=== PATIENT | male | born 2000 | race Caucasian/White ===

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

== ENCOUNTER 2019-04-19 23:00 | Inpatient (IN) | payer OTHER ==
[~2019-04-19] VITALS: Ht 177.8 cm; Wt 99.0 kg
[~2019-04-19 23:00] MED LIST: ALBU8.5H8 INH; AZIT500T5 PO; HC30CR25 TOP; LORA10CA PO; PRED20TA PO
[2019-04-19] MEDS ORDERED: ACETAMINOPHEN 500 MG TAB PO STA (23:16)
[2019-04-19] MEDS ORDERED: METHYLPREDNISOLONE 125 MG INJ IV ONE (23:30)
[2019-04-19] MEDS ORDERED: LEVALBUTEROL (NEB) 1.25 MG/0.5 ML AMP HHN ONE (23:30)
[2019-04-19] MEDS ORDERED: KETOROLAC 30 MG INJ IM STA (23:49)
[2019-04-19] MEDS ORDERED: KETOROLAC 30 MG INJ IV ONE (23:57)
[2019-04-20] MEDS ORDERED: CEFTRIAXONE 1 GM INJ IM ONE (01:30)
[2019-04-20] MEDS ORDERED: SOD CHLORIDE 0.9% 1,000 ML IV ONE (01:30)
[2019-04-20] MEDS ORDERED: LEVALBUTEROL (NEB) 1.25 MG/0.5 ML AMP HHN ONE (01:30)
[2019-04-20] MEDS ORDERED: CEFTRIAXONE 1 GM/50 ML (PMX) 50 ML IVPB ONE (01:30)
[2019-04-20] MEDS ORDERED: MAGNESIUM SULFATE 1 GM/D5W 100 ML IVPB ONE (01:30)
[2019-04-20] MEDS ORDERED: SODIUM CHLORIDE 0.9% 1L BAG IV* STA (03:30)
[2019-04-20] MEDS ORDERED: AZITHROMYCIN 500MG/NS (PMX) 250 ML IVPB ONE (04:00)
[2019-04-20] MEDS ORDERED: SOD CHLORIDE 0.9% 100 ML ONE (04:32)
[2019-04-20] MEDS ORDERED: IOHEXOL 100 ML ONE (04:32)
[2019-04-20] MEDS ORDERED: SOD CHLORIDE 0.9% 1,000 ML IV SCH (04:45)
[2019-04-20] MEDS ORDERED: BISACODYL (EC) 5 MG TAB PO PRN (05:00)
[2019-04-20] MEDS ORDERED: DOCUSATE SODIUM 100 MG CAP PO PRN (05:00)
[2019-04-20] MEDS ORDERED: HYDROCODONE/APAP (5/325) TAB PO PRN (05:00)
[2019-04-20] MEDS ORDERED: ONDANSETRON 4 MG INJ IV PRN (05:00)
[2019-04-20] MEDS ORDERED: NACL 0.9% 3 ML SYG IV SCH (05:00)
[2019-04-20] MEDS ORDERED: ACETAMINOPHEN 325 MG TAB PO PRN (05:00)
[2019-04-20] MEDS ORDERED: IBUPROFEN 600 MG TAB PO PRN (05:00)
[2019-04-20 08:00] VITALS: BP 127/71; PULSE 102; RESP 16
[2019-04-20] MEDS ORDERED: SOD CHLORIDE 0.9% 500 ML IV ONE (08:00)
[2019-04-20 09:00] VITALS: BP 127/71; PULSE 102; RESP 20
[2019-04-20 09:59] VITALS: Ht 177.8 cm; Wt 99.0 kg
[2019-04-20] MEDS: LORATADINE 10 MG TAB PO SCH (10:21)
[2019-04-20] MEDS: ENOXAPARIN 40 MG/0.4 ML SYG SC SCH (10:23)
[2019-04-20] MEDS ORDERED: ALBUTEROL/IPRATROPIUM (NEB) 3 ML AMP HHN PRN (13:30)
[2019-04-20] MEDS ORDERED: CEPASTAT LOZENGE MT PRN (13:30)
[2019-04-20 14:03] VITALS: BP 144/75; PULSE 131; RESP 20
[2019-04-20 15:47] VITALS: PULSE 100
[2019-04-20 21:29] VITALS: BP 128/66; PULSE 103; RESP 18
[2019-04-21] MEDS: CEFTRIAXONE 1 GM/50 ML (PMX) 50 ML IVPB SCH (00:42)
[2019-04-21] MEDS: AZITHROMYCIN 250 MG in SOD CHLORIDE 0.9% 250 ML IVPB SCH (01:56)
[2019-04-21 03:42] VITALS: BP 112/80; PULSE 90; RESP 18
[2019-04-21 07:41] VITALS: BP 120/77; PULSE 85; RESP 19
[2019-04-21] MEDS: LORATADINE 10 MG TAB PO SCH (09:20)
[2019-04-21] MEDS: ENOXAPARIN 40 MG/0.4 ML SYG SC SCH (09:21)
[2019-04-21 15:30] VITALS: BP 122/77; PULSE 87; RESP 18
[2019-04-21 19:37] VITALS: BP 126/75; PULSE 80; RESP 20
[2019-04-22] MEDS: CEFTRIAXONE 1 GM/50 ML (PMX) 50 ML IVPB SCH (00:27)
[2019-04-22 01:12] VITALS: BP 135/67; PULSE 68; RESP 20
[2019-04-22] MEDS: AZITHROMYCIN 250 MG in SOD CHLORIDE 0.9% 250 ML IVPB SCH (01:21)
[2019-04-22 07:49] VITALS: BP 110/59; PULSE 61; RESP 16
[2019-04-22] MEDS: LORATADINE 10 MG TAB PO SCH (08:44)
[2019-04-22] MEDS: ENOXAPARIN 40 MG/0.4 ML SYG SC SCH (08:48)
[2019-04-22 15:13] VITALS: BP 120/59; PULSE 75; RESP 16
== END 2019-04-22 15:59 | disposition home or self-care (01) | DRG 871 ==
LOC: FTE 23:00 → 2NE 04-20 04:42 → EDBEDREQSVC 04-20 07:50
PROVIDERS: ADMIT Family Medicine; ATTEND Internal Medicine
DX: A41.9 Sepsis, unspecified organism (principal); J18.9 Pneumonia, unspecified organism; E66.9 Obesity, unspecified; Z68.31 Body mass index [BMI] 31.0-31.9, adult; Z71.3 Dietary counseling and surveillance; Z87.891 Personal history of nicotine dependence
CPT/HCPCS: 71046; 71275; 80053; 80061; 80307; 81003; 83036; 83605; 83735; 84443; 84484; 85025; 85378; 85610; 85730; 87400; 93005; 93970; 94640; 94664; 96361; 96374; 96375; J0456; J0696; J1650; J1885; J2930; J3475; J7030; J7040; J7050; Q9967